=== PATIENT | male | born 2000 | race Caucasian/White ===

== ENCOUNTER 2023-07-29 10:59 | Emergency (ER) | payer MEDICAID ==
[~2023-07-29] VITALS: Ht 190.5 cm; Wt 145.1 kg
[2023-07-29 11:29] VITALS: BP_SYST 130; PULSE 78; RESP 16; TEMP 97.2; O2SAT 97
[2023-07-29] MEDS ORDERED: IBUP-1969 PO (12:17)
[2023-07-29] MEDS ORDERED: BROM118S61 PO (12:17)
[2023-07-29 12:33] VITALS: BP_SYST 130; PULSE 78; RESP 16; TEMP 97.2; O2SAT 97
[2023-07-29 12:46] LABS: COVID19 ANTIGEN SOFIA FIA NEGATIVE (NEGATIVE); INFLUENZA TYPE B NEGATIVE (NEGATIVE)
[2023-07-29 12:51] LABS: INFLUENZA TYPE A Positive (NEGATIVE)
== END 2023-07-29 12:33 | disposition home or self-care (01) ==
LOC: SED 10:59
DX: J10.1 Influenza due to other identified influenza virus with other respiratory manifestations (principal); R05.9 Cough, unspecified; M79.10 Myalgia, unspecified site; J34.89 Other specified disorders of nose and nasal sinuses; Z79.899 Other long term (current) drug therapy; Z20.822 Contact with and (suspected) exposure to COVID-19
CPT/HCPCS: 36415; 99283